=== PATIENT | female | born 1985 | race Caucasian/White ===

== ENCOUNTER 2019-01-13 15:39 | Emergency (ER) | payer SELFPAY ==
[~2019-01-13] VITALS: Ht 152.4 cm; Wt 57.5 kg
[2019-01-13] MEDS ORDERED: FLUMAZENIL 0.5 MG INJ IV STA (15:48)
[2019-01-13] MEDS ORDERED: SOD CHLORIDE 0.9% 1,000 ML IV STA (15:48)
[2019-01-13 15:51] VITALS: Ht 152.4 cm; Wt 57.5 kg
[2019-01-13] MEDS ORDERED: NALOXONE 2 MG SYG IV ONE (16:00)
[2019-01-13] MEDS ORDERED: LORAZEPAM 2 MG INJ IV ONE (16:30)
[2019-01-13 19:36] VITALS: BP 105/81; PULSE 81; RESP 20
== END 2019-01-13 19:35 | disposition home or self-care (01) ==
LOC: E/R 15:39
DX: F13.10 Sedative, hypnotic or anxiolytic abuse, uncomplicated (principal); F10.10 Alcohol abuse, uncomplicated; R40.2112 Coma scale, eyes open, never, at arrival to emergency department; R40.2212 Coma scale, best verbal response, none, at arrival to emergency department; R40.2352 Coma scale, best motor response, localizes pain, at arrival to emergency department
CPT/HCPCS: 36415; 70450; 71045; 80053; 80307; 81025; 85025; 85610; 85730; 93005; 96374; 96375; 99285; J2060; J2310; J7030; P9612